=== PATIENT | male | born 1935 | race Caucasian/White ===

== ENCOUNTER → 2016-03-05 | Outpatient (CLI) | payer MEDICARE, OTHER | LOC: OD 09:46 | PROVIDERS: ATTEND Urology | DX: N40.0 Benign prostatic hyperplasia without lower urinary tract symptoms (principal) | CPT/HCPCS: 36415; 84153 ==

== ENCOUNTER 2016-03-08 09:13 | Emergency (ER) | payer MEDICARE, OTHER ==
--- NOTE | 2016-03-08 09:49 | ER Document Report ---
ED General - General Time seen by provider: 09:38 Mode of Arrival: Ambulatory Information source: Patient TRAVEL OUTSIDE OF THE [place] IN LAST 30 DAYS: No - HPI Onset: Yesterday Onset/Duration: Gradual Associated symptoms: Productive cough, Rhinnorhea, Sinus pain/drainage, Shortness of breath, Other - wheezing - General Chief Complaint: Sore Throat Stated Complaint: SORE THROAT Notes: Patient is a 80-year-old male presenting to the emergency department with complaints of cough, sore throat, and rhinorrhea. Patient states his symptoms started yesterday but that his was also feeling sick prior. Patient states that his abdominal muscles are sore due to coughing and he is also having some wheezing or squeaking from his congestion. Patient also states he is somewhat short of breath since his symptoms onset. Patient has a history of type 2 diabetes mellitus, GERD, hypertension, hyperlipidemia, heart attack 1, and A-fib. Patient had open heart surgery in 2002 caused by his heart attack. Patient's PCP is Dr. Menjivar in [place]. Patient has no known allergies. ( MOLINA ESCUDERO) - Related Data Allergies/Adverse Reactions: No Known Allergies Allergy (Verified 03/08/16 09:22) Past Medical History - General Information source: Patient - Social History Smoking Status: Never Smoker Chew tobacco use (# tins/day): No Frequency of alcohol use: None Drug Abuse: None Family History: None Patient has suicidal ideation: No Patient has homicidal ideation: No - Past Medical History Cardiac Medical History: Reports: Hx Atrial Fibrillation, Hx Heart Attack - x1, Hx Hypercholesterolemia, Hx Hypertension - CONTROLLED GI Medical History: Reports: Hx Gastroesophageal Reflux Disease, Hx Hepatitis - HEP C, TREATED, STATES CURED, Hx Hiatal Hernia Infectious Medical History: Reports: Hx Hepatitis - HEP C, TREATED, STATES CURED Past Surgical History: Reports: Hx Appendectomy, Hx Open Heart Surgery - OCT 2002, Hx Tonsillectomy Review of Systems - Review of Systems Constitutional: See HPI, Malaise EENT: See HPI, Nose congestion, Throat pain Cardiovascular: No symptoms reported Respiratory: See HPI, Cough, Short of breath, Wheezing Gastrointestinal: No symptoms reported Genitourinary: No symptoms reported Male Genitourinary: No symptoms reported Musculoskeletal: No symptoms reported Skin: No symptoms reported Hematologic/Lymphatic: No symptoms reported Neurological/Psychological: No symptoms reported -: Yes All other systems reviewed and negative Physical Exam - Vital signs Interpretation: Normal - General General appearance: Appears well, Alert In distress: Mild - HEENT Head: Normocephalic, Atraumatic Eyes: Normal Pupils: PERRL Ears: Normal External canal: Normal Tympanic membrane: Normal Mouth/Lips: Normal Mucous membranes: Normal Pharynx: Erythema - Respiratory Respiratory status: No respiratory distress Chest status: Nontender Breath sounds: Wheezing - diffuse wheezing consistent with chest congestion Chest palpation: Normal - Cardiovascular Rhythm: Regular Heart sounds: Normal auscultation Murmur: No - Abdominal Inspection: Normal Distension: No distension Bowel sounds: Normal Tenderness: Nontender Organomegaly: No organomegaly - Back Back: Normal, Nontender - Extremities General upper extremity: Normal inspection, Normal ROM, Normal strength General lower extremity: Normal inspection, Normal ROM, Normal strength - Neurological Neuro grossly intact: Yes Cognition: Normal Orientation: AAOx4 Nigel Coma Scale Eye Opening: Spontaneous [place] Coma Scale Verbal: Oriented [place] Coma Scale Motor: Obeys Commands Nigel Coma Scale Total: 15 Speech: Normal Sensory: Normal - Psychological Associated symptoms: Normal affect, Normal mood - Skin Skin Temperature: Warm Skin Moisture: Moist - Vital signs Vitals: Temp Pulse Resp BP Pulse Ox 97.9 F 72 24 H 142/92 H 98 03/08/16 09:18 03/08/16 09:18 03/08/16 09:18 03/08/16 09:18 03/08/16 09:18 (MOLINA ESCUDERO) (ALLISON VANESSA) Discharge - Discharge Clinical Impression: Bronchitis with bronchospasm Condition: Stable Disposition: HOME, SELF-CARE Additional Instructions: Bronchitis with Bronchospasm (Wheezing): You have bronchitis with bronchospasm (wheezing). Sometimes people develop wheezing with a chest cold. This occurs either because of an underlying tendency toward asthma or because the virus itself irritates the bronchial tubes. This irritation causes cough, shortness of breath, and wheezing. Emergency treatment of bronchospasm may include adrenaline shots or bronchodilator aerosol. You may feel lightheaded and have a rapid pulse for an hour or two. Rest and get plenty of fluids. At home, we'll treat you with a bronchodilator inhaler. Corticosteroids may be required for some patients. Until you recover, avoid chemical fumes, dusts, pollens, and exercising in very cold or dry air. If you smoke, stop now! Most cases of bronchitis get better without antibiotics. We prescribe antibiotics when we believe bacteria are damaging your airways, or if there's high risk the bronchitis will worsen into pneumonia. Increase your fluid intake. A cool mist humidifier may make your lungs more comfortable. An expectorant (cough medicine that loosens phlegm) can help. Repeated episodes of bronchitis and bronchospasm may result in lung damage -- for example, chronic bronchitis, recurrent pneumonias, or emphysema. If you develop a fever, increased wheezing, chest pain, or severe shortness of breath, you should contact the doctor immediately. DRINK PLENTY OF FLUIDS. TAKE THE MEDICATIONS PRESCRIBED. USE THE INHALER FOR WHEEZING AND SHORTNESS OF BREATH. FOLLOW UP WITH YOUR DOCTOR THIS WEEK IF NOT IMPROVING. RETURN TO THE EMERGENCY ROOM IF ANY NEW OR WORSENING SYMPTOMS. Prescriptions: Albuterol Sulfate [Proair HFA] 1 - 2 puff IH Q4 PRN #1 inhaler PRN Reason: Azithromycin [Zithromax 250 mg Tablet] 250 mg PO ASDIR PRN #6 tablet PRN Reason: Hydrocodone/Acetaminophen [Hydrocodon-Acetaminophen 5-325] 1 each PO Q4 PRN #15 tablet PRN Reason: Referrals: VON MENJIVAR [Primary Care Provider] - Follow up as needed Scribe Attestation: 03/08/16 11:36 I personally performed the services described in the documentation, reviewed and edited the documentation which was dictated to the scribe in my presence, and it accurately records my words and actions. (ALLISON VANESSA) Scribe Documentation - Scribe Written by Scribe:: ALLISON VANESSA MD, SCRIBE 03/08/16 [id number] Acting as scribe for: Dr. Vanessa ([place]) (ALLISON VANESSA)
[2016-03-08] MEDS ORDERED: HYDROCODONE/ACETAMINOPHEN 5-325 MG 6 TAB/DSPK PO PRN (09:52)
[2016-03-08] MEDS ORDERED: IPRATROPIUM/ALBUTEROL 0.5-2.5 MG/3 ML AMPUL NEB ONE (09:52)
[2016-03-08] MEDS ORDERED: LIDOCAINE 1% INJ-PF (10 MG/ML) 30 ML SDV INJ ONE (09:52)
[2016-03-08 11:50] VITALS: BP 133/67
== END 2016-03-08 11:49 | disposition home or self-care (01) ==
LOC: ER 09:13
DX: J40 Bronchitis, not specified as acute or chronic (principal); J98.01 Acute bronchospasm; R05 Cough; J34.89 Other specified disorders of nose and nasal sinuses; R06.02 Shortness of breath; R06.2 Wheezing; J02.9 Acute pharyngitis, unspecified; E11.9 Type 2 diabetes mellitus without complications; I10 Essential (primary) hypertension; I25.2 Old myocardial infarction
CPT/HCPCS: 94640; 99283; 71020; J3490; A9270 ×2; J7620

== ENCOUNTER 2017-02-22 09:43 | Emergency (ER) | payer MEDICARE, OTHER ==
--- NOTE | 2017-02-22 10:27 | ER Document Report ---
ED General - General Chief Complaint: Allergic Reaction Stated Complaint: POSSIBLE ALLERGIC REACTION Time Seen by Provider: 02/22/17 10:09 Mode of Arrival: Ambulatory Information source: Patient Notes: This is an 81-year-old man with a history of diabetes, atrial fibrillation ( Xarelto), arthritis, recurrent shingles (valacyclovir) hiatal hernia and Baires 's esophagitis. The patient was placed on Vesicare by his urologist 3 weeks ago and started developing hives 1 week later. He stopped taking the Vesicare and his primary care doctor had prescribed Zyrtec. The patient presents to the ER today because of rash on the hands and the knees. He denies fever. He does state he has a lot of pain in his joints but he has had significant arthritis in the past and has plans to have his hips injected with steroids. TRAVEL OUTSIDE OF THE [place] IN LAST 30 DAYS: No - HPI Onset: Last week Onset/Duration: Gradual Quality of pain: No pain Severity: None Pain Level: Denies Associated symptoms: denies: Chills, Fever, Shortness of breath Exacerbated by: Denies Relieved by: Denies Similar symptoms previously: Yes Recently seen / treated by doctor: Yes - Related Data Allergies/Adverse Reactions: solifenacin [From Vesicare] Allergy (Verified 02/22/17 09:44) Past Medical History - General Information source: Patient - Social History Smoking Status: Never Smoker Cigarette use (# per day): No Chew tobacco use (# tins/day): No Frequency of alcohol use: None Drug Abuse: None Lives with: Spouse/Significant other Family History: None Patient has suicidal ideation: No Patient has homicidal ideation: No - Past Medical History Cardiac Medical History: Reports: Hx Atrial Fibrillation, Hx Heart Attack - x1, Hx Hypercholesterolemia, Hx Hypertension - CONTROLLED Pulmonary Medical History: Denies: Hx Asthma Neurological Medical History: Denies: Hx Cerebrovascular Accident, Hx Seizures Endocrine Medical History: Reports: Hx Diabetes Mellitus Type 2 Renal/ Medical History: Denies: Hx Peritoneal Dialysis GI Medical History: Reports: Hx Gastroesophageal Reflux Disease, Hx Hepatitis - HEP C, TREATED, STATES CURED, Hx Hiatal Hernia. Denies: Hx Ulcer Infectious Medical History: Reports: Hx Hepatitis - HEP C, TREATED, STATES CURED Past Surgical History: Reports: Hx Appendectomy, Hx Open Heart Surgery - OCT 2002, Hx Tonsillectomy. Denies: Hx Pacemaker Review of Systems - Review of Systems Constitutional: denies: Chills, Fever EENT: No symptoms reported Cardiovascular: No symptoms reported Respiratory: No symptoms reported Gastrointestinal: No symptoms reported Genitourinary: No symptoms reported Male Genitourinary: No symptoms reported Musculoskeletal: See HPI Skin: See HPI Hematologic/Lymphatic: No symptoms reported Neurological/Psychological: No symptoms reported Physical Exam - Vital signs Vitals: Temp Pulse Resp BP Pulse Ox 98.2 F 95 22 H 157/71 H 97 02/22/17 09:48 02/22/17 09:48 02/22/17 09:48 02/22/17 09:48 02/22/17 09:48 Notes: Physical exam: GENERAL: HEAD: Atraumatic, normocephalic. EYES: Extraocular movements intact, sclera anicteric, patient has injection of the conjunctiva in the temporal aspect of the left eye. There is no pain with range of motion of the eye. Pupils are equally round and reactive to light. ENT: TMs normal, nares patent, oropharynx clear without exudates. Moist mucous membranes. NECK: Normal range of motion, supple without obvious mass or JVD. LUNGS: Breath sounds clear to auscultation bilaterally and equal. No wheezes rales or rhonchi. HEART: Regular rate and rhythm without murmurs, rubs or gallops. ABDOMEN: Soft, normoactive bowel sounds. No tenderness to palpation. No guarding, no rebound. No masses appreciated. EXTREMITIES: Normal range of motion, no pitting or edema. No clubbing or cyanosis. NEUROLOGICAL: Cranial nerves II through XII grossly intact. Normal speech, moving all extremities. PSYCH: Normal mood, normal affect. SKIN: Patient has palmar erythema over the MCP joints of both hands. There is no obvious swelling. He does have some erythema along the dorsal aspect of the hand over the metatarsals bilaterally. He has small macular papular type lesions over the right knee and left knee (more over the right knee) and a few scattered lesions over the right foot. The joints are warm or swollen. Course - Vital Signs Vital signs: Temp Pulse Resp BP Pulse Ox 98.8 F 76 16 143/81 H 96 02/22/17 13:27 02/22/17 13:27 02/22/17 13:27 02/22/17 13:27 02/22/17 13:27 - Laboratory Result Diagrams: 02/22/17 10:45 02/22/17 10:45 Laboratory results interpreted by me: 02/22/17 02/22/17 02/22/17 10:45 10:45 10:45 WBC 11.6 H RBC 4.03 L Hgb 11.4 L Hct 35.0 L RDW 17.4 H Seg Neutrophils % 80.9 H Lymphocytes % 10.8 L Absolute Neutrophils 9.4 H Sodium 131.7 L Chloride 96 L Glucose 402 H* Albumin 3.3 L Urine Glucose (UA) >=500 H Urine Blood SMALL H Urine Urobilinogen 4.0 H Discharge - Discharge Clinical Impression: Arthralgias, Exanthem Condition: Stable Disposition: HOME, SELF-CARE Additional Instructions: As we discussed, your labs look relatively good (except for the elevated sugar which we know is from not taking the insulin this morning). You did not have any evidence of anaphylaxis. While the rash could be an allergic reaction, I would continue the Zyrtec. As we discussed, I am avoiding the prednisone (which is a steroid) because of concerns for uncontrolled glucose and worsening reflux symptoms. I would like you to follow-up with Dr. Graham tomorrow: Cassidy, the nurse on-call for the office today, said that the office will be open at 8:30 in the morning. Bring a copy of today's labs with you. Dr. Graham was not quality control analyst today so I was not able to speak directly to him. Referrals: VON GRAHAM MD [Primary Care Provider] - Follow up as needed
[2017-02-22 11:00] LABS: ABSOLUTE EOSINOPHILS # (AUTO) 0.1 10^3/uL (0.0-0.6); ABSOLUTE LYMPHOCYTES (AUTO) 1.2 10^3/uL (0.5-4.7); ABSOLUTE MONOCYTES (AUTO) 0.8 10^3/uL (0.1-1.4); ABSOLUTE NEUT (AUTO) 9.4 10^3/uL (1.7-8.2); BASOPHILS % (AUTO) 0.3 % (0-2); HEMOGLOBIN 11.4 g/dL (13.5-17.0); LYMPHOCYTES % (AUTO) 10.8 % (13-45); MEAN CORPUSCULAR HEMOGLOBIN 28.2 pg (27.0-33.4); MEAN CORPUSCULAR HGB CONC 32.5 g/dL (32.0-36.0); MEAN CORPUSCULAR VOLUME 87 fl (80-97); PLATELET COUNT 333 10^3/uL (150-450); RED BLOOD COUNT 4.03 10^6/uL (4.35-5.55); RED CELL DISTRIBUTION WIDTH 17.4 % (11.5-14.0); SEGMENTED NEUTROPHILS % (AUTO) 80.9 % (42-78); TOTAL CELLS COUNTED % (AUTO) 100 %; WHITE BLOOD COUNT 11.6 10^3/uL (4.0-10.5)
[2017-02-22 11:03] LABS: APPEARANCE,URINE CLEAR; BILIRUBIN,URINE NEGATIVE (NEGATIVE); COLOR,URINE YELLOW; GLUCOSE, URINE >=500 mg/dL (NEGATIVE); KETONES,URINE NEGATIVE (NEGATIVE); LEUKOCYTE ESTERASE,URINE NEGATIVE (NEGATIVE); NITRITE,URINE NEGATIVE (NEGATIVE); PROTEIN,URINE NEGATIVE (NEGATIVE); URINE SPECIFIC GRAVITY 1.026
[2017-02-22 11:18] LABS: ALANINE AMINOTRANSFERASE 38 U/L (21-72); ALBUMIN 3.3 g/dL (3.5-5.0); ALKALINE PHOSPHATASE 94 U/L (38-126); ANION GAP 11 (5-19); ASPARTATE AMINO TRANSFERASE 42 U/L (17-59); BILIRUBIN,DIRECT 0.4 mg/dL (0.0-0.4); BILIRUBIN,TOTAL 0.6 mg/dL (0.2-1.3); BLOOD UREA NITROGEN 11 mg/dL (7-20); CALCIUM 8.8 mg/dL (8.4-10.2); CARBON DIOXIDE 25 mmol/L (22-30); CHLORIDE 96 mmol/L (98-107); POTASSIUM 4.6 mmol/L (3.6-5.0); SODIUM 131.7 mmol/L (137-145); TOTAL PROTEIN 7.7 g/dL (6.3-8.2)
[2017-02-22 11:28] LABS: GLUCOSE 402 mg/dL (75-110)
[2017-02-22 13:37] VITALS: BP 143/81
== END 2017-02-22 13:37 | disposition home or self-care (01) ==
LOC: ER 09:43
DX: R21 Rash and other nonspecific skin eruption (principal); M19.90 Unspecified osteoarthritis, unspecified site; E11.9 Type 2 diabetes mellitus without complications; I48.91 Unspecified atrial fibrillation; Z79.01 Long term (current) use of anticoagulants; B02.9 Zoster without complications; Z79.899 Other long term (current) drug therapy; Z88.8 Allergy status to other drugs, medicaments and biological substances; I25.2 Old myocardial infarction; I10 Essential (primary) hypertension; K21.9 Gastro-esophageal reflux disease without esophagitis
CPT/HCPCS: 36415; 80053; 81001; 84443; 85025; 99283

== ENCOUNTER 2017-08-04 04:34 | Emergency (ER) | payer MEDICARE, OTHER ==
[2017-08-04 06:54] LABS: ABSOLUTE BASOPHILS # (AUTO) 0.1 10^3/uL (0.0-0.2); ABSOLUTE LYMPHOCYTES (AUTO) 1.1 10^3/uL (0.5-4.7); ABSOLUTE NEUT (AUTO) 9.1 10^3/uL (1.7-8.2); BASOPHILS % (AUTO) 0.5 % (0-2); EOSINOPHILS % (AUTO) 0.4 % (0-6); HEMATOCRIT 31.3 % (37.9-51.0); HEMOGLOBIN 10.5 g/dL (13.5-17.0); LYMPHOCYTES % (AUTO) 9.5 % (13-45); MEAN CORPUSCULAR HEMOGLOBIN 27.4 pg (27.0-33.4); MEAN CORPUSCULAR HGB CONC 33.6 g/dL (32.0-36.0); MEAN CORPUSCULAR VOLUME 82 fl (80-97); MONOCYTES % (AUTO) 9.3 % (3-13); PLATELET COUNT 316 10^3/uL (150-450); RED BLOOD COUNT 3.84 10^6/uL (4.35-5.55); RED CELL DISTRIBUTION WIDTH 17.2 % (11.5-14.0); SEGMENTED NEUTROPHILS % (AUTO) 80.3 % (42-78); TOTAL CELLS COUNTED % (AUTO) 100 %; WHITE BLOOD COUNT 11.3 10^3/uL (4.0-10.5)
[2017-08-04 07:03] LABS: ALANINE AMINOTRANSFERASE 68 U/L (21-72); ALKALINE PHOSPHATASE 153 U/L (38-126); ANION GAP 9 (5-19); ASPARTATE AMINO TRANSFERASE 79 U/L (17-59); BILIRUBIN,DIRECT 0.4 mg/dL (0.0-0.4); BILIRUBIN,TOTAL 0.7 mg/dL (0.2-1.3); BLOOD UREA NITROGEN 10 mg/dL (7-20); CALCIUM 8.9 mg/dL (8.4-10.2); CARBON DIOXIDE 28 mmol/L (22-30); CHLORIDE 96 mmol/L (98-107); CREATINE KINASE 96 U/L (55-170); GLUCOSE 198 mg/dL (75-110); POTASSIUM 4.2 mmol/L (3.6-5.0); SODIUM 132.5 mmol/L (137-145); TOTAL PROTEIN 7.6 g/dL (6.3-8.2)
--- NOTE | 2017-08-04 07:14 | EKG REPORT ---
SEVERITY:- ABNORMAL ECG - NSR LEFT AXIS DEVIATION BORDERLINE T ABNORMALITIES, ANT-LAT LEADS : Confirmed by: Micky Oliveira MD 04-Aug-2017 07:13:36
[2017-08-04 07:15] LABS: CREATINE KINASE MB 0.49 ng/mL (<4.55)
--- NOTE | 2017-08-04 07:17 | ER Document Report ---
ED General - General Chief Complaint: Fall Stated Complaint: GENERAL WEAKNESS Time Seen by Provider: 08/04/17 06:02 Mode of Arrival: Medic Information source: Patient, [facility] Records Notes: 82-year-old male with atrial fibrillation, coronary artery disease, type 2 diabetes, hyperlipidemia presents via EMS after the patient reports that he tripped and fell at home. Patient reports that he was walking back to his bed after going to the bathroom when his knees gave out and he fell forward landing on his knees and hands. Patient denies any loss of consciousness. He denies any head injury. He denies any neck or back pain. He states that his was unable to get him off the floor which caused her to call EMS. Patient denies any preceding chest pain, palpitations, shortness of breath, nausea, diaphoresis. He states that for approximately 3 weeks he has had issues with poor p.o. intake. He reports multiple episodes of vomiting when he eats anything. He has been seen by his PCP Dr. Menjivar who had him undergo a CAT scan of his abdomen. Patient is to see the his doctor today at 1 PM. He denies any abdominal pain but states he does have distention. TRAVEL OUTSIDE OF THE [place] IN LAST 30 DAYS: No - HPI Onset: Just prior to arrival Onset/Duration: Sudden Quality of pain: No pain Severity: None Associated symptoms: None, Nausea, Vomiting - Chronic nausea and vomiting for 3 weeks. denies: Chest pain, Shortness of breath Exacerbated by: Denies Relieved by: Denies Similar symptoms previously: Yes Recently seen / treated by doctor: Yes - Related Data Allergies/Adverse Reactions: solifenacin [From Vesicare] Allergy (Verified 02/22/17 09:44) Past Medical History - General Information source: Patient, Emergency Med Personnel, [facility] Records - Social History Smoking Status: Never Smoker Frequency of alcohol use: None Drug Abuse: None Lives with: Family Family History: None Patient has suicidal ideation: No Patient has homicidal ideation: No - Past Medical History Cardiac Medical History: Reports: Hx Atrial Fibrillation, Hx Heart Attack - x1, Hx Hypercholesterolemia, Hx Hypertension - CONTROLLED Pulmonary Medical History: Denies: Hx Asthma Neurological Medical History: Denies: Hx Cerebrovascular Accident, Hx Seizures Endocrine Medical History: Reports: Hx Diabetes Mellitus Type 2 Renal/ Medical History: Denies: Hx Peritoneal Dialysis GI Medical History: Reports: Hx Gastroesophageal Reflux Disease, Hx Hepatitis - HEP C, TREATED, STATES CURED, Hx Hiatal Hernia. Denies: Hx Ulcer Infectious Medical History: Reports: Hx Hepatitis - HEP C, TREATED, STATES CURED Past Surgical History: Reports: Hx Appendectomy, Hx Open Heart Surgery - OCT 2002, Hx Tonsillectomy. Denies: Hx Pacemaker Review of Systems - Review of Systems Constitutional: Weakness, Weight loss. denies: Diaphoresis, Fever EENT: denies: Blurred vision Cardiovascular: denies: Chest pain, Palpitations, Syncope, Lightheaded Respiratory: denies: Short of breath Gastrointestinal: Abdomen distended, Nausea, Vomiting, Poor appetite, Poor fluid intake Genitourinary: denies: Dysuria, Flank pain Male Genitourinary: No symptoms reported Musculoskeletal: No symptoms reported Skin: denies: Rash Hematologic/Lymphatic: denies: Easy bleeding Neurological/Psychological: denies: Confusion, Depression, Lost consciousness, Headaches -: Yes All other systems reviewed and negative Physical Exam - Vital signs Vitals: Resp 20 08/04/17 04:49 Interpretation: Normal - Notes Notes: PHYSICAL EXAMINATION: GENERAL: Well-appearing, well-nourished and in no acute distress. HEAD: Atraumatic, normocephalic. EYES: Pupils equal round and reactive to light, extraocular movements intact, sclera anicteric, conjunctiva are normal. ENT: Nares patent, oropharynx clear without exudates. Moist mucous membranes. NECK: Normal range of motion, supple without lymphadenopathy LUNGS: Breath sounds clear to auscultation bilaterally and equal. No wheezes rales or rhonchi. HEART: Regular rate and rhythm without murmurs ABDOMEN: Soft, nontender. Mild abdominal distention no guarding, no rebound. No masses appreciated. Musculoskeletal: Normal range of motion, no pitting or edema. No cyanosis. NEUROLOGICAL: Cranial nerves grossly intact. Normal speech, normal gait. Normal sensory, motor exams PSYCH: Normal mood, normal affect. SKIN: Pale, warm, Dry, normal turgor, no rashes or lesions noted. Course - Re-evaluation Re-evalutation: Laboratory 08/04/17 08/04/17 08/04/17 06:35 06:35 06:35 WBC 11.3 H RBC 3.84 L Hgb 10.5 L Hct 31.3 L MCV 82 MCH 27.4 MCHC 33.6 RDW 17.2 H Plt Count 316 Seg Neutrophils % 80.3 H Lymphocytes % 9.5 L Monocytes % 9.3 Eosinophils % 0.4 Basophils % 0.5 Absolute Neutrophils 9.1 H Absolute Lymphocytes 1.1 Absolute Monocytes 1.0 Absolute Eosinophils 0.0 Absolute Basophils 0.1 Sodium 132.5 L Potassium 4.2 Chloride 96 L Carbon Dioxide 28 Anion Gap 9 BUN 10 Creatinine 0.67 Est GFR ( Amer) > 60 Est GFR (Non-Af Amer) > 60 Glucose 198 H Calcium 8.9 Total Bilirubin 0.7 Direct Bilirubin 0.4 Neonat Total Bilirubin Not Reportable Neonat Direct Bilirubin Not Reportable Neonat Indirect Bili Not Reportable AST 79 H ALT 68 Alkaline Phosphatase 153 H Creatine Kinase 96 CK-MB (CK-2) 0.49 Troponin I < 0.012 Total Protein 7.6 Albumin 3.0 L Urine Color Urine Appearance Urine pH Ur Specific [place] Urine Protein Urine Glucose (UA) Urine Ketones Urine Blood Urine Nitrite Urine Bilirubin Urine Urobilinogen Ur Leukocyte Esterase Urine WBC (Auto) Urine RBC (Auto) Urine Bacteria (Auto) Squamous Epi Cells Auto Urine Mucus (Auto) Urine Ascorbic Acid 08/04/17 07:07 WBC RBC Hgb Hct MCV MCH MCHC RDW Plt Count Seg Neutrophils % Lymphocytes % Monocytes % Eosinophils % Basophils % Absolute Neutrophils Absolute Lymphocytes Absolute Monocytes Absolute Eosinophils Absolute Basophils Sodium Potassium Chloride Carbon Dioxide Anion Gap BUN Creatinine Est GFR ( Amer) Est GFR (Non-Af Amer) Glucose Calcium Total Bilirubin Direct Bilirubin Neonat Total Bilirubin Neonat Direct Bilirubin Neonat Indirect Bili AST ALT Alkaline Phosphatase Creatine Kinase CK-MB (CK-2) Troponin I Total Protein Albumin Urine Color DARK YELLOW Urine Appearance SLIGHTLY-CLOUDY Urine pH 6.0 Ur Specific [place] 1.016 Urine Protein 30 H Urine Glucose (UA) NEGATIVE Urine Ketones NEGATIVE Urine Blood SMALL H Urine Nitrite NEGATIVE Urine Bilirubin NEGATIVE Urine Urobilinogen 4.0 H Ur Leukocyte Esterase TRACE H Urine WBC (Auto) 24 Urine RBC (Auto) 7 Urine Bacteria (Auto) 3+ Squamous Epi Cells Auto <1 Urine Mucus (Auto) OCC Urine Ascorbic Acid NEGATIVE 08/04/17 09:[address] Menjivar's nurse Aidee who informs me that recent CAT scan is concerning for pancreatic cancer and metastasis. She feels that if patient is stable at his best to get him to his appointment today at 1 PM for theyhave arranged for oncolgy f/u. 08/04/17 09:49 is very upset that we have not provided the patient IV fluids although he shows no signs of dehydration. I have not told them of the CT findings of the abdomen that was reported to me by her primary care physician's nurse because they are driving themselves and I do not want them upset while driving. 08/04/17 10:27 Patient ambulated around the department with out assistance or difficulty. I did ask the and patient if they had family nearby that could assist them. states that they have plenty of family and for me 'not to worry about how he is going to get into the doctor's office". 08/04/17 15:08 08/04/17 15:09 82-year-old male with atrial fibrillation, coronary artery disease, type 2 diabetes, hyperlipidemia presents via EMS after the patient reports that he tripped and fell at home. Patient reports that he was walking back to his bed after going to the bathroom when his knees gave out and he fell forward landing on his knees and hands. Patient denies any loss of consciousness. He denies any head injury. He denies any neck or back pain. He states that his was unable to get him off the floor which caused her to call EMS. Patient denies any preceding chest pain, palpitations, shortness of breath, nausea, diaphoresis. He states that for approximately 3 weeks he has had issues with poor p.o. intake. He reports multiple episodes of vomiting when he eats anything. He has been seen by his PCP Dr. Menjivar who had him undergo a CAT scan of his abdomen. Patient is to see the his doctor today at 1 PM. Patient was seen by myself upon arrival. Vital signs were reviewed. Patient is afebrile , normotensive and not hypoxic. Patient does not appear toxic or dehydrated. They are in no acute distress. Previous medical records and nursing notes reviewed. Patient was discharged home after receiving IV fluids. Patient ambulating without difficulty prior to discharge. No episodes of vomiting during his ED course. I did contact Dr. Menjivar's office to assure that the patient made it to his appointment. Nurse states that he made it there safely with he and his were informed of CAT scan results of probable pancreatic cancer with metastasis. He has an upcoming appointment with oncology Dr. Palmer in 2 days. 08/04/17 20:07 08/04/17 20:11 - Vital Signs Vital signs: Temp Pulse Resp BP Pulse Ox 98.4 F 29 H 134/72 H 96 08/04/17 10:01 08/04/17 10:01 08/04/17 10:01 08/04/17 10:01 - Laboratory Result Diagrams: 08/04/17 06:35 08/04/17 06:35 Laboratory results interpreted by me: 08/04/17 08/04/17 08/04/17 06:35 06:35 07:07 WBC 11.3 H RBC 3.84 L Hgb 10.5 L Hct 31.3 L RDW 17.2 H Seg Neutrophils % 80.3 H Lymphocytes % 9.5 L Absolute Neutrophils 9.1 H Sodium 132.5 L Chloride 96 L Glucose 198 H AST 79 H Alkaline Phosphatase 153 H Albumin 3.0 L Urine Protein 30 H Urine Blood SMALL H Urine Urobilinogen 4.0 H Ur Leukocyte Esterase TRACE H - Diagnostic Test Radiology reviewed: Image reviewed, Reports reviewed - EKG Interpretation by Me EKG shows normal: Sinus rhythm Rate: Normal [place]/QRS: Left axis deviation Discharge - Discharge Clinical Impression: Weakness, Abdominal distention Fall Qualifiers: Encounter type: initial encounter Qualified Code(s): W19.XXXA - Unspecified fall, initial encounter Condition: Fair Disposition: HOME, SELF-CARE Instructions: Weakness (OM) Additional Instructions: Please see your primary care physician today as already scheduled. I did make him aware that you were seen in the emergency department today and he still would like to see you in his office at the scheduled time. Referrals: VON MENJIVAR MD [Primary Care Provider] - 08/04/17
[2017-08-04 07:36] LABS: TROPONIN I < 0.012 ng/mL
[2017-08-04 07:48] LABS: APPEARANCE,URINE SLIGHTLY-CLOUDY; BILIRUBIN,URINE NEGATIVE (NEGATIVE); GLUCOSE, URINE NEGATIVE (NEGATIVE); KETONES,URINE NEGATIVE (NEGATIVE); LEUKOCYTE ESTERASE,URINE TRACE (NEGATIVE); NITRITE,URINE NEGATIVE (NEGATIVE); PROTEIN,URINE 30 mg/dL (NEGATIVE); URINE SPECIFIC GRAVITY 1.016
[2017-08-04 07:49] LABS: COLOR,URINE DARK YELLOW
[2017-08-04] MEDS ORDERED: NORMAL SALINE 1000 ML 1,000 ML IV ONE (08:21)
[2017-08-04 10:34] VITALS: BP 134/72
== END 2017-08-04 10:45 | disposition home or self-care (01) ==
LOC: ER 04:34
DX: Z04.3 Encounter for examination and observation following other accident (principal); R53.1 Weakness; R14.0 Abdominal distension (gaseous); R11.2 Nausea with vomiting, unspecified; R63.4 Abnormal weight loss; R63.0 Anorexia; I10 Essential (primary) hypertension; I25.10 Atherosclerotic heart disease of native coronary artery without angina pectoris; E11.9 Type 2 diabetes mellitus without complications; Z88.8 Allergy status to other drugs, medicaments and biological substances; Z87.19 Personal history of other diseases of the digestive system; Z90.49 Acquired absence of other specified parts of digestive tract; I25.2 Old myocardial infarction
CPT/HCPCS: 93005; 99285; 96360; 36415; 82553; 82550; 85025; 80053; 81001; 84484; 93010; J7030